=== PATIENT | male | born 1940 | race Caucasian/White ===

== ENCOUNTER 2016-09-30 07:00 | Emergency (ER) | payer MEDICARE, OTHER ==
[2016-09-30] MEDS ORDERED: IOPAMIDOL 300 (61%) 150 ML VIAL IV ONE (07:01)
[2016-09-30 07:46] LABS: URINE BILIRUBIN NEGATIVE (NEGATIVE); URINE BLOOD NEGATIVE (NEGATIVE); URINE GLUCOSE (UA) NEGATIVE (NEGATIVE); URINE LEUKOCYTE ESTERASE NEGATIVE (NEGATIVE); URINE NITRITE NEGATIVE (NEGATIVE); URINE PROTEIN 2+ (NEGATIVE); URINE UROBILINOGEN 1 mg/dL (0-1 mg/dl)
[2016-09-30 07:49] LABS: URINE APPEARANCE CLEAR; URINE COLOR AMBER
[2016-09-30 07:56] LABS: URINE BACTERIA RARE; URINE EPITHELIAL CELLS 0-1 /hpf; URINE MUCUS 2+; URINE RBC RARE /hpf; URINE WBC 0-1 /hpf
[2016-09-30] MEDS ORDERED: HYDROMORPHONE HCL 1 MG/ML SYRINGE ONE (08:02)
[2016-09-30] MEDS ORDERED: ONDANSETRON 4 MG/2ML 2 ML VIAL ONE ×2 (08:02→08:04)
[2016-09-30] MEDS ORDERED: LACTATED RINGERS 1,000 ML ONE (08:02)
[2016-09-30 08:15] LABS: ABSOLUTE NEUTROPHIL COUNT 5.5 K/mm3 (1.8-7.7); BASO % 0.4 % (0.2-1.0); EOS % 0.4 % (0.9-2.9); HEMATOCRIT 45.6 % (32.0-52.0); HEMOGLOBIN 15.2 gm/l (14.0-18.0); IMM NEUT% 0.4 % (0-1); MEAN CELL VOLUME 86.2 fl (80.0-94.0); MEAN CORPUSCULAR HEMOGLOBIN 28.7 pg (27.0-31.0); MEAN CORPUSCULAR HGB CONC 33.3 g/dl (33.0-37.0); MEAN PLATELET VOLUME 9.7 fl (7.4-10.4); MONO % 12.6 % (4-12); NEUT % 73.2 % (43-75); PLATELET COUNT 215 K/mm3 (130-400); RED CELL DISTRIBUTION WIDTH 12.8 % (11.5-14.5)
[2016-09-30 08:56] LABS: ALB/GLOB RATIO 1.2 (>1.0); ALBUMIN 3.7 gm/dL (3.5-5.7); CALCIUM 9.5 mg/dL (8.6-10.3)
--- NOTE | 2016-09-30 10:09 | CT ---
Exam: CT abdomen and pelvis with contrast COMPARISON: None INDICATION: Abdominal pain and vomiting. TECHNIQUE: CT examination of the abdomen and pelvis was obtained following the administration of 125 mL Isovue-300 intravenous contrast. FINDINGS: There are a few loops of relatively prominent jejunum within the right side of the abdomen without discrete transition point which measure up to 3.2 cm in diameter. There is no focal bowel wall thickening. There is no free air. There is a trace amount of free fluid in the pelvis. There is no evidence of abscess formation. Moderate amount of stool is present within the colon. The remainder of the bowel is unremarkable. The appendix is normal. There is a tiny left inguinal hernia which contains a small amount of fluid. There is mild to moderate prostatomegaly. There is a urinary bladder diverticulum posteriorly on the right which demonstrates some wall thickening and minor surrounding fat stranding. There is no pelvic lymphadenopathy or fluid collection. Two subcentimeter hepatic cysts are noted, of no clinical concern. Mild hepatic steatosis is suggested but the liver is otherwise unremarkable. Spleen is normal in size. Pancreas is within normal limits. There is no adrenal mass. Gallbladder is within normal limits. 2.5 cm cyst is present in the upper pole the right kidney. Several parapelvic cysts are seen within the kidneys, left greater than right. There is no hydronephrosis. There is mild dependent atelectasis within the lung bases. Marked facet arthropathy is seen at the lumbosacral junction on the right. Degenerative disc disease is seen at L4-5. Subcentimeter sclerotic lesion in L5 is noted and of uncertain etiology and significance. No additional sclerotic lesions are seen. IMPRESSION: 1. A few relatively dilated loops of jejunum are seen without discrete transition point. The stomach is decompressed. Enteritis is favored over an early or partial small bowel obstruction. 2. Trace amount of free fluid in the pelvis and left inguinal hernia. 3. Urinary bladder diverticulum which demonstrates some wall thickening and stranding fat stranding. Correlate for cystitis and pain in the pelvis. 4. Hepatic and renal cysts, of no clinical concern. 5. Mild to moderate prostatomegaly. 6. Tiny fat-containing left inguinal hernia which also contains a small amount of fluid. 7. Subcentimeter sclerotic lesion within the L5 vertebral body which is likely of no clinical concern in the absence of primary malignancy. Findings were called to Dr. Estrada at 1002 hours 09/30/2016.
== END 2016-09-30 10:46 | disposition home or self-care (01) ==
LOC: ED 07:00
DX: R10.9 Unspecified abdominal pain (principal); R11.10 Vomiting, unspecified
CPT/HCPCS: 83690; 85025; 80053; 81001; 74177; 99284 ×2; 96374; 96361 ×2; J1170; J2405 ×2; J7120; Q9967